=== PATIENT | female | born 1995 | race Caucasian/White ===

== ENCOUNTER 2023-10-24 18:23 | Emergency (ER) | payer SELFPAY ==
[2023-10-24 18:29] VITALS: BP 113/87; PULSE 94; RESP 18; TEMP 36.8; O2SAT 100
--- NOTE | 2023-10-24 18:33 | W.ED.ALCOHOL ---
Documented by User: Adelaide Yip MD 10/24/23 18:38 HPI - Alcohol General: Chief Complaint: Alcohol Stated Complaint: ETOH Time Seen by Provider: 10/24/23 18:28 History of Present Illness: 28-year-old female who presents to the emergency room by ambulance with alcohol intoxication. Currently she drank an unknown but large amount of alcohol and had taken some pills (she has not in an effort to hurt herself) and her friend found her unresponsive in the bathtub. She is now more awake and is tearful. No focal motor deficits. She does appear intoxicated. Review of Systems Narrative: Constitutional symptoms: Negative except as documented in HPI. Skin symptoms: Negative except as documented in HPI. Eye symptoms: Negative except as documented in HPI. ENMT symptoms: Negative except as documented in HPI. Respiratory symptoms: Negative except as documented in HPI. Cardiovascular symptoms: Negative except as documented in HPI. Gastrointestinal symptoms: Negative except as documented in HPI. Genitourinary symptoms: Negative except as documented in HPI. Musculoskeletal symptoms: Negative except as documented in HPI. Neurologic symptoms: Negative except as documented in HPI. Psychiatric symptoms: Negative except as documented in HPI. Endocrine symptoms: Negative except as documented in HPI. Physical Exam Narrative: EXAM NARRATIVE: General: Patient still has wet hair from the bathtub. She appears intoxicated. Skin: Warm, dry. Head: Normocephalic, atraumatic. Neck: Supple, trachea midline. Eye: Extraocular movements are intact. Ears, nose, mouth and throat: Dry oral mucosa Cardiovascular: Regular, Normal peripheral perfusion. Respiratory: Lungs are clear to auscultation, respirations are non-labored, breath sounds are equal, Symmetrical chest wall expansion. Gastrointestinal: Soft, Nontender, Non distended, Normal bowel sounds. Musculoskeletal: Normal ROM, no deformity. Neurological: Patient is intoxicated but oriented to her friend, No focal neurological deficit observed. Psychiatric: Patient is very tearful Course Vital Signs: Vital signs: Vital Signs Temperature 98.2 F 10/24/23 22:56 Pulse Rate 91 10/24/23 22:56 Respiratory Rate 16 10/24/23 22:56 Blood Pressure 114/84 10/24/23 22:56 Pulse Oximetry 99 10/24/23 22:56 Oxygen Delivery Me thod Room Air 10/24/23 22:11 MDM - Alcohol Medical Decision Making Medical decision making: Differential diagnosis including but not limited to and based on the above HPI, review of systems and physical exam: Orders placed to evaluate differential diagnosis based on the above differential, HPI and physical exam Lab Review: Laboratory results were reviewed and interpreted by myself the emergency room physician. I reviewed the patient's medical record. Reexamination: Lab Data Laboratory Results Urine Color Yellow (Yellow) 10/24/23 20:30 Urine Appearance Clear (CLEAR) 10/24/23 20:30 Urine pH 5 (5-7) 10/24/23 20:30 Ur Specific [place] 1.025 (1.005-1.030) 10/24/23 20:30 Urine Protein Neg (Negative) 10/24/23 20:30 Urine Glucose (UA) Norm (Normal) 10/24/23 20: Urine Ketones Negative (Negative) 10/24/23 20:30 Urine Blood Neg (Negative) 10/24/23 20:30 Urine Nitrate Negative (Negative) 10/24/23 20: Urine Bilirubin Neg (Negative) 10/24/23 20:30 Urine Urobilinogen Neg mg/dL (Negative) 10/24/23 20:30 Ur Leukocyte Esterase Negative (Negative) 10/24/23 20:30 Urine RBC 0-4 /hpf (0-2) H 10/24/23 20:30 Urine WBC 0-4 /hpf (0-5) H 10/24/23 20:30 Ur Squamous Epith Cells 5-10 /hpf (0-5) H 10/24/23 20:30 Amorphous Sediment Not Reportable 10/24/23 20:30 Urine Bacteria 1+ /hpf (NONE) H 10/24/23 20:30 Urine Mucus 1+ /hpf 10/24/23 20:30 Urine Opiates Screen Negative ng/mL (Negative) 10/24/23 20:30 Ur Barbiturates Screen Negative ng/mL (Negative) 10/24/23 20:30 Ur Phencyclidine Scrn Negative ng/mL (Negative) 10/24/23 20:30 Ur Amphetamines Screen Negative ng/mL (Negative) 10/24/23 20:30 U Benzodiazepines Scrn Negative ng/mL (Negative) 10/24/23 20:30 Urine Cocaine Screen Negative ng/mL (Negative) 10/24/23 20:30 U Marijuana (THC) Screen Negative ng/mL (Negative) 10/24/23 20:30 Discharge Plan Discharge Patient Disposition: Home Clinical Impression: Alcoholic intoxication Condition: Stable Discharge Orders: Discharge ED (Routine); Ordered 10/24/23 Ordered By: Fredy Newton Referrals: Michael Reed MD [Family Provider] - 1-3 days Patient Instructions: Alcohol Intoxication (ED), Opioid Safety, Pain Management Activity Restrictions/Additional Instructions: Return for any problems. Coding Level of Care Code ED Welfare Eligibility Interviewer for Chg Fwd Documented by User: Fredy Newton, DO 10/25/23 04:58 HPI - Alcohol General: Chief Complaint: Alcohol Stated Complaint: ETOH Time Seen by Provider: 10/24/23 18:28 Course Vital Signs: Vital signs: Vital Signs Temperature 98.2 F 10/24/23 22:56 Pulse Rate 91 10/24/23 22:56 Respiratory Rate 16 10/24/23 22:56 Blood Pressure 114/84 10/24/23 22:56 Pulse Oximetry 99 10/24/23 22:56 Oxygen Delivery Me thod Room Air 10/24/23 22:11 MDM - Alcohol Medical Decision Making Medical decision making: Differential diagnosis including but not limited to and based on the above HPI, review of systems and physical exam: Orders placed to evaluate differential diagnosis based on the above differential, HPI and physical exam Lab Review: Laboratory results were reviewed and interpreted by myself the emergency room physician. I reviewed the patient's medical record. Reexamination: On reexamination, the patient has been up, walked on her own to the bathroom. She is answering questions. Family is with her. They are sober. The blood work was not able to be obtained, due to difficulty with phlebotomy. The patient did have an IV for access, and 1 L fluid bolus was given. She ate in the ER. Family is comfortable taking her home. She is not homicidal or suicidal. They will return for any problems. Lab Data Laboratory Results Urine Color Yellow (Yellow) 10/24/23 20:30 Urine Appearance Clear (CLEAR) 10/24/23 20:30 Urine pH 5 (5-7) 10/24/23 20:30 Ur Specific [place] 1.025 (1.005-1.030) 10/24/23 20:30 Urine Protein Neg (Negative) 10/24/23 20:30 Urine Glucose (UA) Norm (Normal) 10/24/23 20:30 Urine Ketones Negative (Negative) 10/24/23 20:30 Urine Blood Neg (Negative) 10/24/23 20:30 Urine Nitrate Negative (Negative) 10/24/23 20:30 Urine Bilirubin Neg (Negative) 10/24/23 20:30 Urine Urobilinogen Neg mg/dL (Negative) 10/24/23 20:30 Ur Leukocyte Esterase Negative (Negative) 10/24/23 20:30 Urine RBC 0-4 /hpf (0-2) H 10/24/23 20:30 Urine WBC 0-4 /hpf (0-5) H 10/24/23 20:30 Ur Squamous Epith Cells 5-10 /hpf (0-5) H 10/24/23 20:30 Amorphous Sediment Not Reportable 10/24/23 20:30 Urine Bacteria 1+ /hpf (NONE) H 10/24/23 20:30 Urine Mucus 1+ /hpf 10/24/23 20:30 Urine Opiates Screen Negative ng/mL (Negative) 10/24/23 20:30 Ur Barbiturates Screen Negative ng/mL (Negative) 10/24/23 20:30 Ur Phencyclidine Scrn Negative ng/mL (Negative) 10/24/23 20:30 Ur Amphetamines Screen Negative ng/mL (Negative) 10/24/23 20:30 U Benzodiazepines Scrn Negative ng/mL (Negative) 10/24/23 20:30 Urine Cocaine Screen Negative ng/mL (Negative) 10/24/23 20:30 U Marijuana (THC) Screen Negative ng/mL (Negative) 10/24/23 20:30 No radiology studies performed this visit Discharge Plan Discharge Patient Disposition: Home Clinical Impression: Alcoholic intoxication Condition: Stable Discharge Orders: Discharge ED (Routine); Ordered 10/24/23 Ordered By: Fredy Newton Referrals: Michael Reed MD [Family Provider] - 1-3 days Patient Instructions: Alcohol Intoxication (ED), Opioid Safety, Pain Management Activity Restrictions/Additional Instructions: Return for any problems. Coding Level of Care Code ED Welfare Eligibility Interviewer for Светлана Rodriguez
--- NOTE | 2023-10-24 20:11 | PC.NURSE ---
Lab called to draw the pts blood at this time
[2023-10-24] MEDS: ondansetron 2 mg/ML SDV 2 mL 8 MG IVP (20:20)
[2023-10-24] MEDS: sodium chloride 0.9% 1,000 ML 999 ML IV (20:20)
[2023-10-24 20:52] LABS: Urine Appearance Clear (CLEAR)
[2023-10-24 20:53] LABS: Bacteria Urine 1+ /hpf; Bilirubin Urine Neg (Negative); Blood Urine Neg (Negative); Glucose Urine UA Norm (Normal); Ketones Urine Negative (Negative); Leukocyte Esterase Urine Negative (Negative); Mucus Urine 1+ /hpf; Nitrate Urine Negative (Negative); Protein Urine Neg (Negative); RBC Urine 0-4 /hpf (0-2); Specific Gravity, Urine 1.025 (1.005-1.030); Urine Color Yellow (Yellow); Urobilinogen Urine Neg (Negative); WBC Urine 0-4 /hpf (0-5); pH Urine 5 (5-7)
[2023-10-24 20:54] LABS: Amphetamines Screen Urine Negative (Negative); Barbiturates Screen Urine Negative (Negative); Benzodiazepines Screen Urine Negative (Negative); Cocaine Screen Urine Negative (Negative); Opiate Screen Urine Negative (Negative); PCP Screen Urine Negative (Negative); THC Screen Urine Negative (Negative)
[2023-10-24 22:11] VITALS: BP 108/64; PULSE 98; RESP 18; O2SAT 98
[2023-10-24 22:56] VITALS: BP 114/84; PULSE 91; RESP 16; TEMP 36.8; O2SAT 99
== END 2023-10-24 22:57 | disposition home or self-care (01) ==
PROVIDERS: Emergency Medicine; Emergency Provider Emergency Medicine; Family Provider General Practice
DX: F10.129 Alcohol abuse with intoxication, unspecified (principal); Y90.9 Presence of alcohol in blood, level not specified
CPT/HCPCS: 80306; 81001; 96361; 96374; 99284; J2405; J7030